=== PATIENT | male | born 1930 | race Caucasian/White ===

== ENCOUNTER 2017-03-31 22:24 | Inpatient (IN) | payer OTHER, MEDICAID ==
[~2017-03-31] VITALS: Ht 165.1 cm; Wt 63.0 kg
[2017-03-31 22:25] VITALS: BP_SYST 134
--- NOTE | 2017-03-31 22:25 | NUR ---
Patient to ER bed 6 to gown for evaluation. Side rails up. Report given to ANTHONY ROBLEDO.
--- NOTE | 2017-03-31 22:26 | NUR ---
ER at bedside examining patient.
--- NOTE | 2017-03-31 22:35 | NUR ---
RECEIVED AN 86 YO MALE VIA BLS TO ER 6, FROM [facility]. STAFF STATED PT HAVING INCREASED ALTERED LEVEL OF CONSCIOUSNESS. HAS HISTORY OF DM, HTN, AND DEMENTIA.
[2017-03-31] MEDS ORDERED: ISOS30TA6 PO (22:38)
[2017-03-31] MEDS ORDERED: MAGN400O4 PO (22:38)
[2017-03-31] MEDS ORDERED: DULR10 RC (22:38)
[2017-03-31] MEDS ORDERED: LEVO50TA8 PO (22:38)
[2017-03-31] MEDS ORDERED: MEMA5TAB PO (22:38)
[2017-03-31] MEDS ORDERED: CARV25TA55 PO (22:38)
[2017-03-31] MEDS ORDERED: GLU500 PO (22:38)
[2017-03-31] MEDS ORDERED: CAT.1 PO (22:38)
[2017-03-31] MEDS ORDERED: SIMV40TA5 PO (22:38)
[2017-03-31] MEDS ORDERED: ASPI-1063 PO (22:38)
[2017-03-31] MEDS ORDERED: GABA-531 PO (22:38)
--- NOTE | 2017-03-31 22:39 | NUR ---
Medication reconciliation completed with information provided by - LIST FROM UNA NUNO. Any prior medication reconciliation on file was reviewed and corrected.
--- NOTE | 2017-03-31 22:55 | NUR ---
ACCU-CHEK 121.
--- NOTE | 2017-03-31 23:00 | NUR ---
IN AND OUT CATH DONE, UA SPEC SENT TO LAB.
--- NOTE | 2017-03-31 23:05 | NUR ---
Pt to radiology via tyler with MEENA Coronado
[2017-03-31 23:12] LABS: BASOPHILS % (AUTO) 0.5 % (0.0-2.0); EOSINOPHILS # (AUTO) 0.3 K/uL (0.0-0.4); EOSINOPHILS % (AUTO) 4.3 % (0.0-4.0); HEMOGLOBIN 13.2 g/dL (14.0-18.0); LYMPHOCYTES # (AUTO) 1.6 K/uL (1.0-5.5); LYMPHOCYTES % (AUTO) 22.2 % (20.5-51.5); MEAN CORPUSCULAR HEMOGLOBIN 32 pg (27-31); MEAN CORPUSCULAR HGB CONC 34 % (32-36); MEAN CORPUSCULAR VOLUME 95 fL (79.0-98.0); MONOCYTES # (AUTO) 0.8 K/uL (0.0-1.0); MONOCYTES % (AUTO) 10.9 % (1.7-9.3); NEUTROPHILS # (AUTO) 4.6 K/uL (1.8-7.7); NEUTROPHILS % (AUTO) 62.1 % (40.0-70.0); PLATELET COUNT (AUTO) 181 K/uL (130-430); RED CELL DISTRIBUTION WIDTH 12.8 % (9.0-15.0); WHITE BLOOD COUNT (AUTO) 7.3 K/uL (4.8-10.8)
[2017-03-31 23:15] LABS: ANION GAP 8 (5-15); CHLORIDE 109 mmol/L (98-107); CREATININE 1.06 mg/dL (0.55-1.30); GLUCOSE 120 mg/dL (70-99); POTASSIUM 3.8 mmol/L (3.5-5.1); SODIUM SERUM 143 mmol/L (136-145); UREA NITROGEN, BLOOD 21 mg/dL (8-21)
--- NOTE | 2017-03-31 23:15 | NUR ---
BACK TO ER [address] HEAD VIA [facility].
[2017-03-31 23:23] LABS: ALANINE AMINOTRANSFERASE 18 U/L (12-78); ALBUMIN 3.2 g/dL (3.4-4.8); ASPARTATE AMINOTRANSFERASE 20 U/L (10-37); TOTAL BILIRUBIN 0.6 mg/dL (0.0-1.0); TOTAL PROTEIN, SERUM 6.3 g/dL (6.4-8.3)
[2017-04-01] VITALS (8 sets, daily range): BP systolic 100–198
[2017-04-01 00:04] LABS: BILIRUBIN,URINE NEGATIVE (NEGATIVE); BLOOD, URINE 3+ (NEGATIVE); COLOR,URINE YELLOW (YELLOW); GLUCOSE,URINE NEGATIVE (NEGATIVE); KETONES,URINE NEGATIVE (NEGATIVE); LEUKOCYTE ESTERASE ,URINE NEGATIVE (NEGATIVE); NITRITE, URINE NEGATIVE (NEGATIVE); PH,URINE 6.5 (5.0-8.0); PROTEIN URINE NEGATIVE (NEGATIVE)
[2017-04-01 00:09] LABS: CLARITY/URINE SLIGHTLY HAZY (CLEAR)
[2017-04-01 00:14] LABS: BACTERIA,URINE FEW /HPF (None Seen); MUCUS,URINE 1+ /LPF (None Seen); RBC,URINE 80-100 /HPF (0-3); WBC,URINE 0-3 /HPF (0-3)
[2017-04-01] MEDS ORDERED: BISACODYL 10 MG/SUPPOSITORY RC PRN (01:45)
[2017-04-01] MEDS ORDERED: cloNIDine HCL 0.1 MG TABLET PO PRN (01:45)
[2017-04-01] MEDS ORDERED: INSULIN REGULAR, HUMAN 100 UNITS/ML, 10 ML VIAL (novoLIN R) SUBCUT PRN (02:00)
[2017-04-01] MEDS ORDERED: cefTRIAXone 1 GM IVPB PREMIX 50 ML IV ONE ×2 (02:00→05:01)
--- NOTE | 2017-04-01 02:04 | NUR ---
Patient will be admitted to care of DR HERNANDEZ. Admitted to TELE IN unit. Will go to room 135. Belongings list completed. Summary report printed. Report will be given at bedside.
--- NOTE | 2017-04-01 02:29 | NUR ---
Spoke with Efraín CAI at [facility]. Last time pt received clonidine was 03/31/17 at 1800.
--- NOTE | 2017-04-01 02:32 | NUR ---
Patient transfer to TELE delayed for clonidine 0.1 mg administration.
[2017-04-01] MEDS ORDERED: cloNIDine HCL 0.1 MG TABLET ONE (02:38)
--- NOTE | 2017-04-01 02:54 | NUR ---
ADMISSION NOTE Received patient from ER via tyler, received report from NEW RN. Patient admitted with diagnosis of CVA AND UTI. Patient oriented to hospital routine, call light, toileting and safety-patient verbalized understanding.
--- NOTE | 2017-04-01 03:00 | NUR ---
Pt more alert. Wants to go home. Attemts to get out of gurney. Strains. Transfered to tele floor Rm 132-B via gurisabela. Report given to MEENA Stuart at bedside.
--- NOTE | 2017-04-01 03:15 | NUR ---
Consult Called Reason for consultation: CVA Consulting Physician: Dr. Mace ( Dr. Richardson concrete grinder operator) Person who was notified: Mari Direct Marketing Analyst Specialty: Neurology Order by Dr. Ahuja
--- NOTE | 2017-04-01 03:33 | NUR ---
Admission Notes/ paged for elevated Blood pressure Received pt from ER with DX of left sided weakness and increased ALOC. Patient is A/Ox1, to name only. Pt denies headache or pain. Pt does c/o blurred vision and states that he wears glasses at home, but none seen with his belongings. Left sided weakness noted, more to left upper extremity. Weakness noted to upper and lower extremity. No facial droopiness noted. Blood pressure elevated upon transfer from ER to floor: Blood pressure: 198/100, heart rate is 56, Sinus Kareem on tele monitor, O2 saturation 99% on room air, denies any pain 0/10, Temp 97.0, afebrile. Breathing is even and unlabored. Skin is intact. Pt educated division officer weapons department light, but unable to demonstrated correct back demonstration due to hx of dementia and confusion. Safety measures in place, side rails up x3 with bed in lowest, locked position, bed alarm on at all times, pt's room close to nursing station. Belongings list completed. Full report given to covering RN. All needs met. paged for elevated blood pressure, will await call back. Call light in reach. Will continue to monitor.
--- NOTE | 2017-04-01 03:33 | NUR ---
PAGED: I PAGED DR. HERNANDEZ @ [phone] I SPOKE WITH YASMIN HOWELL I PAGED SECOND TIME [phone] I SPOKE WITH ADRIANO HOWELL
[2017-04-01] MEDS ORDERED: ENALAPRILAT DIHYDRATE 1.25 MG/ML VIAL IVP PRN (04:15)
--- NOTE | 2017-04-01 04:16 | NUR ---
Spoke with MD Ahuja/Obinna Informed MD that pt's Blood pressure continues to be elevated at 187/83, Heart rate 62. MD ordered Vasotec 0.625 IVP for SBP above 160. lithographers printer made aware of new order. Assisted pt with urinal at this time, with total of 200cc of dk yellow urine noted. All needs met. Call light in reach. Will continue to monitor.
--- NOTE | 2017-04-01 04:40 | NUR ---
Vasotec IVP given for elevated BP Vasotec 0.625 IVP give for blood pressure of 189/83. Will re check blood pressure.
--- NOTE | 2017-04-01 05:13 | NUR ---
Antibiotic given late Called Infrastructure Consultant to obtain antibiotic ordered for Rocephin, at this time under medications it showed given by ER. Called WEIGHING STATION OPERATOR Cliff to verify if given, and he stated " I did not give the Rocephin." Infrastructure Consultant informed and obtained Rocephin IVPB dose at this time. Covering RN notified and gave medication as ordered.
[2017-04-01] MEDS: LEVOTHYROXINE SODIUM 0.05 MG TABLET PO SCH (06:08)
--- NOTE | 2017-04-01 06:24 | NUR ---
Closing Notes All scheduled medications given as ordered. Blood pressure re checked: 158/77, heart rate 59. No acute distress or sob noted. IV intact. Pt denies any pain or discomfort. Water given. All needs met throughout shift. Will endorse care to am nurse. Call light in reach. Will continue to monitor.
--- NOTE | 2017-04-01 07:45 | NUR ---
AM ROUNDS PATIENT RESTING IN BED, AWAKE, ALERT AND ORIENTED X1, REORIENTED TO PLACE, TIME AND EVENT, PATIENT DENIES PAIN, ASSESSMENT COMPLETE, PATIENT IS STILL HAVING LEFT SIDE WEAKNESS ON THE LEFT UPPER EXTREMITY, LEFT LEG IS ALSO WEAK, PATIENT HAS A SLUGGISH RIGHT PUPIL AND BRISK LEFT PUPIL, PATIENT IS ABLE TO MOVE ALL EXTREMITIES, EDUCATED THE PATIENT PLATEN DRIER OPERATOR LIGHT SYSTEM AND TO CALL FOR ANY ASSISTANCE, PATIENT VERBALIZED UNDERSTANDING AT THIS TIME, BED IN LOWEST POSITION, THREE SIDE RAILS UP, BED ALARM ON, BED CLOSE TO NURSE'S STATION, FALL AND ASPIRATION PRECAUTIONS IN PLACE.
[2017-04-01] MEDS: metFORMIN HCL 500 MG TABLET PO SCH ×2 (08:00→17:24)
--- NOTE | 2017-04-01 08:14 | NUR ---
Nutrition Update Chava Scale 14 noted. Pt admitted for Cerebrovascular Accident, UTI Diet: CCHO diet BMI: 23.1 kg/m2 RD to follow per nutrition care standards.
[2017-04-01] MEDS: ASPIRIN 81 MG TABLET(ECOTRIN) PO SCH (08:26)
[2017-04-01] MEDS: ISOSORBIDE MONONITRATE 30 MG TAB.ER.24H PO SCH (08:26)
[2017-04-01] MEDS: GABAPENTIN 300 MG CAPSULE PO SCH ×4 (08:26→20:31)
[2017-04-01] MEDS: MILK OF MAGNESIA 30 ML UDC PO SCH (08:26)
[2017-04-01] MEDS: MEMANTINE HCL 5 MG TABLET PO SCH ×2 (08:26→20:31)
[2017-04-01] MEDS: CARVEDILOL 25 MG TABLET (COREG) PO SCH ×2 (08:27→20:36)
--- NOTE | 2017-04-01 08:30 | NUR ---
RN ROUNDS PATIENT RESTING IN BED, AWAKE, DENIES PAIN, EDUCATED ON MEDICATIONS AND POTENTIAL SIDE EFFECTS, PATIENT IS PASSIVE IN LEARNING, JUST STATES OK, PATIENT TOLERATED MEDICATION ADMINISTRATION WELL, PATIENT REFUSED GLUCOPHAGE, EDUCATED ON NEED FOR MEDICATION AND BENEFITS, PATIENT STILL REFUSED, NO OTHER NEEDS AT THIS TIME, BED IN LOWEST POSITION, THREE SIDE RAILS UP, BED ALARM ON, BED CLOSE TO NURSE'S STATION, FALL AND ASPIRATION PRECAUTIONS IN PLACE.
--- NOTE | 2017-04-01 10:51 | NUR ---
DR ALONSO/CAROTID US ROUNDS AT THIS TIME, PATIENT RECEIVING CAROTID ULTRASOUND AT BEDSIDE AT THIS TIME, TOLERATING WELL.
--- NOTE | 2017-04-01 11:04 | NUR ---
CANCELLED MRI PER DR ALONSO ORDERS.
--- NOTE | 2017-04-01 11:49 | NUR ---
RN ROUNDS PATIENT RESTING IN BED, AWAKE, DENIES PAIN, BLOOD GLUCOSE CHECK COMPLETE, NO INSULIN COVERAGE PER MD ORDERS, BED IN LOWEST POSITION, THREE SIDE RAILS UP, BED ALARM ON, BED CLOSE TO NURSE'S STATION, FALL AND ASPIRATION PRECAUTIONS IN PLACE.
--- NOTE | 2017-04-01 12:05 | NUR ---
FAMILY AT BEDSIDE UPDATES GIVEN.
--- NOTE | 2017-04-01 13:25 | NUR ---
CM/DC planning: Dr. Armstrong requested hospice evaluation with [facility] earlier-pt had large stroke--no order entered--Hospice eval order entered --licensing worker Patricia to follow up with [facility] and family. DINORA RN
--- NOTE | 2017-04-01 14:23 | NUR ---
RN ROUNDS PATIENT RESTING IN BED, AWAKE, EDUCATED THE PATIENT AND FAMILY ON MEDICATION AND POTENTIAL SIDE EFFECTS, ALL VERBALIZED UNDERSTANDING, PATIENT TOLERATED WELL, PATIENT TO RECEIVE ECHOCARDIOGRAM AT BEDSIDE AT THIS TIME, FALL PRECAUTIONS IN PLACE.
--- NOTE | 2017-04-01 15:00 | NUR ---
DR ALONSO PAGED AND CALL BACK NURSE REQUESTED PHYSICAL THERAPY EVALUATION AND DVT PROPHYLAXIS, DR ALONSO STATED OK TO PT EVAL AND SCD'S FOR DVT PROPHYLAXIS. INFORMED DR ALONSO THAT DR HERNANDEZ HAD HELD METFORMIN 250MG BID, SAID OK TO CONTINUE. REPORTED CAROTID ULTRASOUND RESULTS, NO NEW ORDERS AT THIS TIME. DR ALONSO SPOKE WITH FAMILY OVER THE PHONE REGARDING PLAN OF CARE.
--- NOTE | 2017-04-01 15:39 | NUR ---
CLINICAL EDUCATION COORDINATOR NOTE: SHEAR HELPER received pt's order for hospice. Pt's Physician recommended [facility]. SHEAR HELPER met with pt, pt's dtr (Norah) and pt's granddaughter (Lety) at bedside. Pt's granddaughter states that they are aware and agreeable to meeting with [facility]. Pt's granddaughter signed Choice of Vendor form and form was placed in pt's chart. Pt's family did not express any other needs or concerns at this time. SHEAR HELPER called and spoke with Reynaldo at [facility] (phone- [phone]/ fax- [phone]). Reynaldo requested for pt's information to be faxed. SHEAR HELPER faxed pt's information. SHEAR HELPER followed up with Reynaldo and he states that [facility] Nurse will be coming to meet with pt today at 4:00pm. SHEAR HELPER spoke with pt's Nurse, Rory. Rory confirms that she was contacted by [facility] and is aware of the meeting at 4:00pm. Rory states that pt's family is also aware of hospice meeting at 4:00pm. Hostess Cashier will continue to remain available and follow up as needed.
--- NOTE | 2017-04-01 16:10 | NUR ---
HOSPICE EVAL NURSE HERE FROM [facility] AT THE BEDSIDE AT THIS TIME, SPEAKING WITH PATIENT AND FAMILY MEMBERS, PENDING ORDERS FOR DISCHARGE PATIENT WILL BE GOING UNDER HOSPICE CARE.
--- NOTE | 2017-04-01 17:39 | NUR ---
RN ROUNDS PATIENT RESTING IN BED, AWAKE, DENIES PAIN, EDUCATED ON MEDICATIONS AND POTENTIAL SIDE EFFECTS, PATIENT DID NOT VERBALIZE UNDERSTANDING BUT ACCEPTED MEDICATIONS, ASPIRATION PRECAUTIONS IN PLACE, PATIENT TOLERATED WELL, BLOOD GLUCOSE CHECK COMPLETE, NO INSULIN ADMINISTRATION PER MD ORDERS, NO OTHER NEEDS AT THIS TIME, BED IN LOWEST POSITION, THREE SIDE RAILS UP, BED ALARM ON, BED CLOSE TO NURSE'S STATION, FALL AND ASPIRATION PRECAUTIONS IN PLACE, CALL LIGHT PLACED IN THE PATIENT'S HAND.
--- NOTE | 2017-04-01 18:43 | NUR ---
CLOSING NOTES PATIENT RESTING IN BED, EYES CLOSED, BREATHING IS EVEN AND UNLABORED, NO SIGNS OF DISTRESS, FAMILY IS AT THE BEDSIDE, ALL NEEDS MET, WILL ENDORSE REPORT TO NOC SHIFT NURSE, BED IN LOWEST POSITION, THREE SIDE RAILS UP, BED CLOSE TO NURSE'S STATION, FALL AND ASPIRATION PRECAUTIONS IN PLACE, CALL LIGHT WITHIN REACH.
--- NOTE | 2017-04-01 19:33 | NUR ---
PM Shift Assessment Received patient lying in bed, AAO x1 and confused, reoriented x4 and patient verbalized understanding but remains forgetful at times. Son is at the bedside. Assessment complete. IV noted to left forearm, saline locked at this time, flushes well, no redness or swelling noted to IV site. SCD's placed to BLE per MD order. Patient was repositioned and made comfortable in bed. Plan of care discussed with patient and son at the bedside, son verbalized understanding. Call light is within reach, all fall and safety precautions in place. Patient room is near nurse's station for close monitoring. Will continue to monitor closely.
[2017-04-01] MEDS ORDERED: cefTRIAXone 1 GM IVPB PREMIX 50 ML IV SCH (21:00)
[2017-04-01] MEDS ORDERED: SIMVASTATIN 40 MG TABLET PO SCH (21:00)
--- NOTE | 2017-04-01 22:18 | NUR ---
RN Rounds Patient is resting quietly in bed, no acute distress noted. Scheduled medications were administered as ordered per MD. Blood sugar was assessed, no insulin provided per sliding scale. Call light is within reach, all fall and safety precautions in place, will continue to monitor closely.
--- NOTE | 2017-04-02 00:26 | NUR ---
RN Rounds Patient is sleeping but easily arousable, no acute distress noted. No complain of pain at this time. Patient was made comfortable in bed. All fall and safety precautions in place, will continue to monitor closely.
--- NOTE | 2017-04-02 02:23 | NUR ---
RN Rounds Patient is sleeping, respirations are even and unlabored, no acute distress noted. No non-verbal signs of pain noted at this time. All fall and safety precautions in place, will continue to monitor closely.
--- NOTE | 2017-04-02 04:34 | NUR ---
RN Rounds Patient is resting quietly in bed, no acute distress noted. Patient was noted to be incontinent of urine, he was cleaned, repositioned and made comfortable in bed with pillow support. Call light is within reach, all fall and safety precautions in place, will continue to monitor closely.
[2017-04-02 05:01] VITALS: BP_SYST 124; BP_SYST 144
[2017-04-02] MEDS: LEVOTHYROXINE SODIUM 0.05 MG TABLET PO SCH (05:42)
--- NOTE | 2017-04-02 06:38 | NUR ---
Closing Notes Patient is resting quietly in bed, no acute distress noted. Patient was repositioned and made comfortable in bed. Patient is stable, all needs met throughout shift. Will continue to monitor until endorsed to AM nurse at bedside.
--- NOTE | 2017-04-02 07:58 | NUR ---
AM ROUNDS: PATIENT ON THE BED,AWAKE AND CONFUSED.ROMANSH SPEAKING AIDE.VITAL SIGNS TAKEN,AFEBRILE.WITH LEFT SIDED WEAKNESS NOTED. CONTINUE TO MONITOR. PATIENT CLOSE TO NURSING STATION.BED ALARM ON.
[2017-04-02 08:03] VITALS: BP_SYST 184
[2017-04-02] MEDS: ASPIRIN 81 MG TABLET(ECOTRIN) PO SCH (08:26)
[2017-04-02] MEDS: GABAPENTIN 300 MG CAPSULE PO SCH ×2 (08:26→12:50)
[2017-04-02] MEDS: metFORMIN HCL 500 MG TABLET PO SCH (08:26)
[2017-04-02] MEDS: CARVEDILOL 25 MG TABLET (COREG) PO SCH (08:27)
[2017-04-02] MEDS: MEMANTINE HCL 5 MG TABLET PO SCH (08:28)
[2017-04-02] MEDS: ISOSORBIDE MONONITRATE 30 MG TAB.ER.24H PO SCH (08:28)
[2017-04-02] MEDS: MILK OF MAGNESIA 30 ML UDC PO SCH (08:29)
[2017-04-02 08:38] VITALS: BP_SYST 167
--- NOTE | 2017-04-02 09:00 | NUR ---
rounds: physical therapist working with the patient. out from bed with two persons assisting and then back to bed.
--- NOTE | 2017-04-02 10:31 | NUR ---
rounds: resting. stable.bed alarm on.
--- NOTE | 2017-04-02 10:46 | NUR ---
Orchestra Conductor Note: STICKER OPERATOR received discharge home with hospice order. STICKER OPERATOR phoned [facility] [phone], and notified them of the order. They are working on a transfer to "a facility" with hospice and will work on a timeline for transfer today.
--- NOTE | 2017-04-02 10:58 | NUR ---
BLOOD SUGAR: BLOOD SUGAR TAKEN,NO INSULIN COVERAGE PER SLIDING SCALE.
--- NOTE | 2017-04-02 11:04 | NUR ---
HOSPICE NOTES: SPOKE WITH DANIE FROM [facility],REQUESTING FOR DISCHARGE ORDERS AND LIST OF MEDICATIONS TO BE FAX TO THIS NUMBER [phone] SO TO FACILITATE THE TRANSFER TO HOSPICE FACILITY ORDERED. PATIENT HAS A ROOM ASSIGNED TO ROOM 26B. TO CALL RN FOR AMBULANCE ETA.
[2017-04-02 12:09] VITALS: BP_SYST 143
--- NOTE | 2017-04-02 12:13 | NUR ---
rn notes: Spoke with dc naval surface fire support planner kamilah and relayed info to fax dc order and med reconciliation [facility] at 2pm.
[2017-04-02 12:23] VITALS: BP_SYST 143
--- NOTE | 2017-04-02 12:28 | NUR ---
Louver Mortiser Operator/Discharge Planning WALLPAPER INSPECTOR AND SHIPPER faxed dc order and med list to Mechelle at [facility] [phone], as requested.
--- NOTE | 2017-04-02 12:46 | NUR ---
rounds: fed by principal product manager. well tolerated .
--- NOTE | 2017-04-02 14:30 | NUR ---
dc notes: Transitional care document packets, given to [facility] staff judit/abby. Iv removed, dry gauze applied and no bleeding noted. Placed white id band .Personal belongings reviewed with transport staff judit/abby and sent with the patient. [facility] ambulance transported patient to [facility] via bl[facility] in stable condition.
--- NOTE | 2017-04-02 14:50 | NUR ---
rn notes: spoke with patient's son jojo and confirmed he has spoken with annie from [facility] that he agreed to the transfer of his dad to [facility].
== END 2017-04-02 14:30 | DRG 64 ==
LOC: SED 22:24 → STU 04-01 01:56
DX: I63.531 Cerebral infarction due to unspecified occlusion or stenosis of right posterior cerebral artery (principal); G93.6 Cerebral edema; G81.94 Hemiplegia, unspecified affecting left nondominant side; E11.22 Type 2 diabetes mellitus with diabetic chronic kidney disease; I12.9 Hypertensive chronic kidney disease with stage 1 through stage 4 chronic kidney disease, or unspecified chronic kidney disease; I25.10 Atherosclerotic heart disease of native coronary artery without angina pectoris; F03.90 Unspecified dementia, unspecified severity, without behavioral disturbance, psychotic disturbance, mood disturbance, and anxiety; I65.21 Occlusion and stenosis of right carotid artery; E03.9 Hypothyroidism, unspecified; N18.3 Chronic kidney disease, stage 3 (moderate); Z79.899 Other long term (current) drug therapy; Z95.5 Presence of coronary angioplasty implant and graft; Z79.82 Long term (current) use of aspirin
CPT/HCPCS: 36415; 70450-TC; 80053; 80061; 81000-TC; 82962; 83036; 83880; 84484; 85025; 85379; 87081; 93005; 93306; 93880; 99285; J0696; J1815; J7050